=== PATIENT | male | born 2005 | race Caucasian/White ===

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

== ENCOUNTER 2024-10-14 13:34 | Emergency (ER) | payer SELFPAY ==
--- NOTE | ~2024-10-14 | XR_ITS ---
EXAMINATION: XR chest 2V 10/14/2024 14:08 INDICATION: Chest pain PROCEDURE: 2 view chest COMPARISON: No prior studies for comparison. FINDINGS: The lungs are clear. The cardiomediastinal silhouette is within normal limits. There are no pleural effusions. There is no pneumothorax suspected. IMPRESSION: 1: NO ACUTE CARDIOPULMONARY DISEASE. Reviewed, dictated and finalized at location B.
[2024-10-14 13:40] VITALS: BP 148/68; PULSE 70; RESP 18; TEMP 36; O2SAT 98
--- NOTE | 2024-10-14 13:45 | ECG_ITS ---
Test Date: 2024-10-14 13:55:00 Measurements Intervals [place] Rate: 68 P: 60 NC: 154 QRS: 70 QRSD: 94 T: 35 QT: 377 QTc: 402 Interpretive Statements SINUS RHYTHM WITH SINUS ARRHYTHMIA NORMAL ECG No previous ECG available for comparison Electronically Signed On 10-14-2024 14:04:43 CDT by Baljinder Celis D.O.
--- OUTSIDE RECORDS SUMMARY | 2024-10-14 14:11 | XMS_ITS | Clinical Summary ---
Author Organization [facility] Address [address] 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 This disclosure is being madepursuant to the Care Everywhere program and may not contain all information available regarding this patient. Last updated 18.[facility] Allergies No known active allergies Medications * Be aware that medications may not be up to date on this document. Alwaysverify current medications with the patient. predniSONE (DELTASONE) 10 MG tablet 3 tabs PO x2 days, 2 tabs PO x2 days, 1 tab PO x2 days 12 Tab 09/04/2016 Active Social History Tobacco Use Types Packs/Day Years Used Date Smoking Tobacco: Never Sex and Gender Information Value Date Recorded Sex Assigned at Not on file Legal Sex Male 6:01 AM CDT Gender Identity Not on file Sexual Orientation Not on file Last Filed Vital Signs Vital Sign Reading Time Taken Comments Blood Pressure 95/50 09/04/2016 9:31 AM CDT Pulse 73 09/04/2016 9:31 AM CDT Temperature 36.8 C (98.3 F) 09/04/2016 9:31 AM CDT Respiratory Rate 18 09/04/2016 9:31 AM CDT Oxygen Saturation 99% 09/04/2016 9:31 AM CDT Inhaled Oxygen Concentration - - Weight 34.5 kg (76 lb) 09/04/2016 9:31 AM CDT Height 149.9 cm (4' 11) 09/04/2016 9:31 AM CDT Body Mass Index 15.35 09/04/2016 9:31 AM CDT Body Mass Index Percentile 10.37% 09/04/2016 9:3 1 AM CDT Growth Chart: [facility] (Boys, 2-2 0 Years) Plan of Treatment Health Maintenance Due Date Last Done Comments HIV SCREENING 12/15/2019 HPV VACCINE (1 - Male 3-dose series) 12/15/2019 MENINGOCOCCAL (Group B) VACC INE SHARED DECISION-MAKING (1 of 2 - Standard) 2020 HEPATITIS C SCREENING 12/10/2022 DTAP/TDAP/TD VACCINES (1 - Tdap) 12/15/2023 HEPATITIS B VACCINE (1 of 3 - 19+ 3-dose series) 12/15/2023 COVID-19 VACCINE (1 - 2023-2 5 season) 2024 DEPRESSION SCREENING 05/05/2024 INFLUENZA VACCINE (Season Ended) 2025 ZOSTER VACCINE (1 of 2) 2054 HIB VACCINE Aged Out No longer eligi ble based on patient's age to complete this topic MENINGOCOCCAL GROUPS A/C/Y/W VACCINE Aged Out No longer eligible b ased on patient's age to complete this topic PNEUMOCOCCAL VACCINE Aged Out No long er eligible based on patient's age to complete this topic Care Teams Fishing Line Winding Machine Operator Relationship Specialty Start Date End Date Mino Palomino MD [address] [place] [phone] PCP - General Family Medicine 09/04/16
[2024-10-14] MEDS: IBUPROFEN 400 MG TABLET PO (14:13)
[2024-10-14 14:16] VITALS: BP 125/71; PULSE 64; RESP 16; O2SAT 98
--- NOTE | 2024-10-14 14:18 | ED.CHESTPAIN ---
HPI - Chest Pain General Chief Complaint: Chest Pain Stated Complaint: Chest Pain Time Seen by Provider: 10/14/24 13:37 Source: patient Mode of arrival: ambulatory Limitations: no limitations History of Present Illness HPI narrative: this is a 18-year-old male who presents with chest discomfort going on for about a week or so after he has been chopping wood and causing left-sided reproducible chest discomfort no pain with deep inspiration no fever chills no cough or congestion no abdominal pain no flank pain. complaint: chest pain Onset (ago): day(s) Timing of current episode: episodic Prior episodes: Yes Onset: during rest Pain location: left chest Pain radiation: none Severity: mild Pain scale (0-10): 3 Related Data Allergies Allergy/AdvReac Type Severity Reaction Status Date / Time No Known Allergies Allergy Verified 10/14/24 13:40 Review of Systems Review of Systems: All systems reviewed & are unremarkable except as noted in HPI and below PMFSH Past Medical History Medical History Depression Surgical History Surgical History No pertinent past surgical history Exam Const: General: cooperative, healthy appearing, comfortable, no acute distress, well developed, alert, awake and Physically active Neck: Neck: normal visual inspection, full ROM, no lymphadenopathy and no meningeal signs Chest: Chest palpation & inspection: normal inspection of the chest and normal palpation of entire chest wall Resp: Effort & Inspection: normal respiratory effort and able to speak in complete sentences Auscultation: clear to auscultation bilaterally Cardio: Jugular venous distension: no JVD Palpation: normal PMI Rate: regular rate Rhythm: regular rhythm GI: Inspection: normal to inspection : General: Yes bimanual renal exam normal bilaterally Skin: General skin exam: normal color and no rashes or lesions noted Neuro: General: oriented to person, oriented to place, oriented to time and patient oriented x3 Extrem: General: normal to inspection, full ROM and capillary refill normal Course Course Emergency Course: Reproducible chest pain with palpation to EKG shows normal sinus rhythm chest x-ray with no acute cardiopulmonary abnormalities patient rated his pain a 3 out 10 and received p.o. Motrin. Vital Signs Vital signs: Vital Signs Temperature 36.0 C L 10/14/24 13:40 Pulse Rate 70 10/14/24 13:40 Respiratory Rate 18 10/14/24 13:40 Blood Pressure 148/68 H 10/14/24 13:40 Pulse Oximetry 98 10/14/24 13:40 Oxygen Delivery Room Air 10/14/24 13:40 Temperature 36.0 C L 10/14/24 13:40 Pulse Rate 70 10/14/24 13:40 Respiratory Rate 18 10/14/24 13:40 Blood Pressure 148/68 H 10/14/24 13:40 Pulse Oximetry 98 10/14/24 13:40 Oxygen Delivery Room Air 10/14/24 13:40 Critical Care Time Critical Care Time Critical Care Time: No Discharge Plan Discharge Clinical Impression: Costalchondritis, Atypical chest pain Patient Disposition: Home Condition: Stable Instructions: Antibiotic Form, Costochondritis (ED), Chest Wall Pain (ED) Additional Instructions: Advised patient to take medication as prescribed and follow with primary within next 3 to 5 days for further evaluation and treatment. Patient Language: Japanese Prescriptions: New naproxen 500 mg tablet 500 mg PO BID PRN (Reason: pain) Qty: 14 0RF Follow-up/Referrals: Parveen Peralta DO [Primary Care Provider] - Time of Disposition: 14:23
[2024-10-14 14:31] VITALS: BP 136/75; PULSE 54; RESP 17; O2SAT 99
--- OUTSIDE RECORDS SUMMARY | 2024-10-14 15:10 | XMS_ITS | Clinical Summary ---
Author Organization [facility] Address [address] [place] [address] Care Team Providers Care Humanities Coordinator Name Role Phone Mino Palomino MD Primary Care Provider [phone] Source Comments [facility],non-owned Affiliates and Associated Physician Practices is amultiple site organization consisting of ambulatory clinics and hospital sitesin [place], [place], [place] and [place]. This disclosure is being madepursuant to the Care Everywhere program and may not contain all information available regarding this patient. Last updated 18.[facility] Allergies No known active allergies Medications * [...] 09/04/2016 9:3 1 AM CDT Growth Chart: [facility] (Boys, 2-2 0 Years) Plan of Treatment [...] age to complete this topic Care Teams Humanities Coordinator Relationship Specialty Start Date End Date Mino Palomino MD [address] [place] [phone] PCP - General Family Medicine 09/04/16
== END 2024-10-14 14:43 | disposition home or self-care (01) ==
LOC: CHSED 14:30
PROVIDERS: Emergency Provider Emergency Medicine; PCP Family Medicine
DX: M94.0 Chondrocostal junction syndrome [Tietze] (principal); R07.89 Other chest pain
CPT/HCPCS: 71046; 93005; 99283; A9270

== ENCOUNTER 2024-10-25 15:15 | Emergency (ER) | payer SELFPAY ==
--- NOTE | ~2024-10-25 | CT_ITS ---
EXAMINATION: CT abdomen pelvis w con DATE: 10/25/2024 16:17 INDICATION: Right lower quadrant abdominal pain TECHNIQUE: Computed tomography (CT) of the abdomen and pelvis was performed with 100 mL Omnipaque-350 intravenous contrast. Automated exposure control and iterative reconstruction technique were employe d. The dose-length product was 198.82 mGy-cm. COMPARISON: 03/17/2023 FINDINGS: Lung bases are clear. Heart size normal. No pericardial or pleural effusion. Liver, gallbladder, sple en, pancreas, bilateral adrenal glands or kidneys are normal. Bowels including the appendix are cynthia l. Bladder is normal. No free intraperitoneal gas or fluid. No pathologically enlarged abdominal or p elvic lymphadenopathy. Bones are unremarkable. IMPRESSION: 1. No acute intra-abdominal/pelvic process. Specifically the appendix is normal. Reviewed, dictated and finalized at location A. IMPRESSION: 1. No acute intra-abdominal/pelvic process. Specifically the appendix is normal .
[2024-10-25 15:15] VITALS: BP 117/63; PULSE 56; RESP 16; TEMP 35.9; O2SAT 98
--- NOTE | 2024-10-25 15:25 | ED.ABDPAIN ---
HPI - Abdominal Pain General Chief Complaint: Abdominal Pain Stated Complaint: abdominal pain Time Seen by Provider: 10/25/24 15:25 Source: patient Mode of arrival: ambulatory Limitations: no limitations History of Present Illness HPI narrative: RIGHT LOWER QUADRANT SHARP STABBING PAIN STARTED WITHIN 30 MINUTES PRIOR TO ARRIVAL TO THE ED. PATIENT DENIES ANY FEVER, CHILLS, OR VOMITING. PATIENT FELT NAUSEATED AND ABOUT TO PASS OUT IN THE WAY TO THE EMERGENCY ROOM. PATIENT DENIES NEW STRENUOUS PHYSICAL ACTIVITIES. 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 PATIENT DENIES RADIATION PAIN, AGGRAVATING OR RELIEVING FACTORS. Related Data Allergies Allergy/AdvReac Type Severity Reaction Status Date / Time No Known Allergies Allergy Verified 10/25/24 15:23 Review of Systems Review of Systems: All systems reviewed & are unremarkable except as noted in HPI and below PMFSH Past Medical History Medical History Depression Surgical History Surgical History No pertinent past surgical history Exam Narrative: GENERAL APPEARANCE: WELL-DEVELOPED, WELL-NOURISHED SKIN: NORMAL COLOR HEAD: NORMOCEPHALIC, NONTRAUMATIC EYES: CLEAR CONJUNCTIVA ENT: OROPHARYNX NORMAL, EARS NORMAL, NOSE NORMAL NECK: SUPPLE, NONTENDER CHEST AND RESPIRATORY: AIRWAY PATENT, NO RESPIRATORY DISTRESS, NO ACCESSORY MUSCLE USE HEART: REGULAR RATE/RHYTHM ABDOMEN: SOFT, MILD TENDERNESS RIGHT LOWER QUADRANT, NO GUARDING OR REBOUND, NO ORGANOMEGALY, QUIET BOWEL SOUNDS VASCULAR: NORMAL PERIPHERAL PULSES, NORMAL CAPILLARY REFILL. MUSCULOSKELETAL: NORMAL RANGE OF MOTION, NONTENDER BACK NEUROLOGIC: ALERT AND ORIENTED ?3, CAN TECHNICIAN IS NORMAL TESTED, NO GROSS MOTOR DEFICIT Course Vital Signs Vital signs: Vital Signs Temperature 35.9 C L 10/25/24 15:15 Pulse Rate 56 L 10/25/24 15:15 Respiratory Rate 16 10/25/24 15:15 Blood Pressure 117/63 10/25/24 15:15 Pulse Oximetry 98 10/25/24 15:15 Oxygen Delivery Room Air 10/25/24 15:15 Temperature 35.9 C L 10/25/24 15:15 Pulse Rate 54 L 10/25/24 16:28 Respiratory Rate 14 10/25/24 16:28 Blood Pressure 117/68 10/25/24 16:28 Pulse Oximetry 98 10/25/24 16:28 Oxygen Delivery Room Air 10/25/24 16:28 MDM - Abdominal Pain MDM Narrative Medical decision making narrative: RIGHT LOWER QUADRANT PAIN VITAL SIGNS ARE STABLE PHYSICAL EXAMINATION CONSISTENT WITH MILD TENDERNESS RIGHT LOWER QUADRANT WITHOUT GUARDING OR REBOUND DIFFERENTIAL DIAGNOSIS INCLUDE APPENDICITIS, CONSTIPATION, URINARY TRACT INFECTION, KIDNEY STONE, COLITIS, ABDOMINAL WALL MUSCLE PAIN BLOOD WORKUP TODAY INCLUDES CBC, CMP, LIPASE SHOWED NO ACUTE ABNORMALITIES URINALYSIS SHOWED NO EVIDENCE OF INFECTION CT ABDOMEN AND PELVIS WITH IV CONTRAST SHOWED NO ACUTE ABNORMALITIES DIAGNOSIS ABDOMINAL PAIN OF UNKNOWN ETIOLOGY THE PT WAS DISCHARGED TO HOME.THE PT,S CONDITION UPON DISCHARGE WAS FAIR,EDUCATION WAS PROVIDED TO THE PT IN REFERENCE TO THE FINAL IMPRESSION,DISCHARGE STUDY RESULTS,TREATMENT,PROGNOSIS AND NEED FOR FOLLOW UP . Differential Diagnosis Differential diagnosis: Likely abdominal pain, acute appendicitis, calculus of kidney and constipation Medical Records Attestation: I reviewed the patient's medical records. Lab Data Attestation: I reviewed the patient's lab results. 10/25/24 15:54 10/25/24 15:54 Labs: Lab Results 10/25/24 10/25/24 Range/Units 15:24 15:54 WBC 5.3 (4.8-10.8) K/mm3 RBC 4.79 (4.70-6.10) M/mm3 Hgb 14.2 (14.0-18.0) g/dL Hct 40.5 (40.0-54.0) % MCV 84.6 (78.0-102.0) fL MCH 29.6 (27.0-31.0) pg MCHC 35.1 (32-36) g/dL RDW 13.0 (11.6-14.4) % Plt Count 198 (150-420) K/mm3 MPV 9.7 (8.7-11.0) fl Immature Gran % (Auto) 0.2 H (0.0-0.0) % Neut % (Auto) 65.2 (50.0-70.0) % Lymph % (Auto) 27.0 (18.0-42.0) % [place]ps % (Auto) 6.4 (2.0-11.0) % Eos % (Auto) 0.6 L (1.0-6.0) % Baso % (Auto) 0.6 (0.0-1.0) % Lymph # (Auto) 1.44 (1.10-4.50) K/mm3 [place]helps # (Auto) 0.34 (0.10-0.90) K/mm3 Eos # (Auto) 0.03 (0.02-0.50) K/mm3 Baso # (Auto) 0.03 (0.00-0.10) K/mm3 Abs Immat Gran (auto) 0.01 H (0.00-0.00) K/mm3 Absolute Neuts (auto) 3.49 (1.70-7.20) K/mm3 Absolute Nucleated RBC 0.00 (0.00-0.00) K/mm3 Nucleated RBC % 0.0 (0-0.0) % Sodium 136 (134-143) mmol/L Potassium 3.7 (3.4-5.0) mmol/L Chloride 103 (98-107) mmol/L Carbon Dioxide 28 (22-30) mmol/L Anion Gap 5 (4-12) mmol/L BUN 18 (8-21) mg/dL Creatinine 0.87 (0.7-1.3) mg/dL Estim Creat Clear Calc 104 ml/min Estimated GFR > 60 (59 - ) Glucose 134 H (65-110) mg/dL Calculated Osmolality 285 (285-295) mOsm/kg Calcium 8.6 L (8.9-10.7) mg/dL Total Bilirubin 0.7 (0.2-1.3) mg/dL AST 21 (17-59) U/L ALT 13 (6-50) U/L Alkaline Phosphatase 54 L (58-237) U/L Total Protein 6.7 (6.3-8.6) g/dL Albumin 4.1 (3.7-5.6) g/dL Lipase 16 L (23-300) U/L Urine Color Yellow (Yellow) Urine Appearance Clear (Clear) Urine pH 7.0 (5.0-8.0) Ur Specific [place] 1.020 (1.010-1.020) Urine Protein Negative (Negative) Urine Glucose (UA) Negative (Negative) Urine Ketones Negative (Negative) Ur Blood (Man) Negative (Negative) Urine Nitrate Negative (Negative) Urine Bilirubin Negative (Negative) Urine Urobilinogen 2.0 H (0.2-1.0) mg/dL Leukocyte Esterase Rfl Negative (Negative) CECIL/UL Urine RBC None seen (0-2) /hpf Urine WBC None seen (0-3) /hpf Ur Squamous Epith Cells Rare (Few) /hpf Urine Bacteria Trace (None) /hpf Imaging Data Radiologist's impression: ITS Impressions Abdomen/Pelvis CT 10/25/24 16:19 IMPRESSION: 1. No acute intra-abdominal/pelvic process. Specifically the appendix is normal. Critical Care Time Critical Care Time Critical Care Time: No Discharge Plan Discharge Clinical Impression: Abdominal pain Patient Disposition: Home Condition: Stable Instructions: Abdominal Pain (ED) Additional Instructions: RETURN IF SYMPTOMS ARE WORSENING , CALL YOUR FAMILY PHYSICIAN FOR APPOINTMENT, TAKE TYLENOL NEEDED FOR ACHES AND PAIN, CONTINUE HOME MEDICATIONS. Patient Language: Omani Prescriptions: No Action naproxen 500 mg tablet 500 mg PO BID PRN (Reason: pain) Qty: 14 0RF Follow-up/Referrals: Parveen Peralta DO [Primary Care Provider] -
[2024-10-25] MEDS: SODIUM CHLORIDE 0.9% IV 1,000 ML 999 ML IV CONT (15:52)
[2024-10-25 15:56] VITALS: BP 119/65; PULSE 85; RESP 18; O2SAT 100
[2024-10-25 16:01] LABS: Basophils Absolute Auto 0.03 K/mm3 (0.00-0.10); Basophils Percent Auto 0.6 % (0.0-1.0); Eosinophils Absolute Auto 0.03 K/mm3 (0.02-0.50); Eosinophils Percent Auto 0.6 % (1.0-6.0); Hematocrit 40.5 % (40.0-54.0); Hemoglobin 14.2 g/dL (14.0-18.0); Immature Granulocyte Absolute 0.01 K/mm3 (0.00-0.00); Immature Granulocyte Percent A 0.2 % (0.0-0.0); Lymphocytes Absolute Auto 1.44 K/mm3 (1.10-4.50); Mean Corpuscular HGB Conc 35.1 g/dL (32-36); Mean Corpuscular Hemoglobin 29.6 pg (27.0-31.0); Mean Corpuscular Volume 84.6 fL (78.0-102.0); Mean Platelet Volume 9.7 fl (8.7-11.0); Monocytes Absolute Auto 0.34 K/mm3 (0.10-0.90); Monocytes Percent Auto 6.4 % (2.0-11.0); Neutrophils Absolute Auto 3.49 K/mm3 (1.70-7.20); Neutrophils Percent Auto 65.2 % (50.0-70.0); Platelet Count Result 198 K/mm3 (150-420); Red Blood Count 4.79 M/mm3 (4.70-6.10); White Blood Count 5.3 K/mm3 (4.8-10.8)
[2024-10-25 16:13] LABS: Alanine Aminotransferase 13 U/L (6-50); Albumin Level 4.1 g/dL (3.7-5.6); Alkaline Phosphatase 54 U/L (58-237); Anion Gap 5 mmol/L (4-12); Aspartate Amino Transferase 21 U/L (17-59); Bilirubin,Total 0.7 mg/dL (0.2-1.3); Blood Urea Nitrogen 18 mg/dL (8-21); Calcium 8.6 mg/dL (8.9-10.7); Carbon Dioxide 28 mmol/L (22-30); Chloride 103 mmol/L (98-107); Estimated CRCL calculation 104 ml/min; Estimated Glomerular Filt Rate > 60; Glucose 134 mg/dL (65-110); Lipase 16 U/L (23-300); Osmolality Calculated 285 mOsm/kg (285-295); Potassium 3.7 mmol/L (3.4-5.0); Sodium 136 mmol/L (134-143); Total Protein 6.7 g/dL (6.3-8.6)
[2024-10-25 16:28] VITALS: BP 117/68; PULSE 54; RESP 14; O2SAT 98
[2024-10-25 17:10] LABS: Appearance Urine Clear (Clear); Bilirubin Urine Negative (Negative); Blood Urine Negative (Negative); Color Urine Yellow (Yellow); Glucose Urine UA Negative (Negative); Ketones Urine Negative (Negative); Nitrate Urine Negative (Negative); Protein Urine Negative (Negative)
[2024-10-25 17:11] LABS: Add Urine Microscopic? YES; Bacteria Urine Trace /hpf; Leukocyte Esterase Ur Negative LEU/UL (Negative); RBC Urine None seen /hpf (0-2); Squamous Epithelial Cell Urine Rare /hpf (Few); WBC Urine None seen /hpf (0-3)
[2024-10-25 17:33] VITALS: BP 128/59; PULSE 55; RESP 16; TEMP 37.1; O2SAT 98
== END 2024-10-25 17:33 | disposition home or self-care (01) ==
PROVIDERS: Emergency Provider Emergency Medicine; PCP Family Medicine
DX: R10.31 Right lower quadrant pain (principal)
CPT/HCPCS: 36415; 74177; 80053; 81001; 83690; 85025; 96360; 99284; J7030; Q9967